=== PATIENT | female | born 1970 | race African-American/Black ===

== ENCOUNTER → 2016-12-03 | Day surgery (SDC) | payer OTHER ==
[~2016-12-03] VITALS: Ht 160 cm; Wt 83.5 kg
[~2016-12-03] MED LIST: FERROUS SULFAT325 M3 PO; LISINOPRIL2.5 M1 PO
--- NOTE | 2016-12-10 11:23 | Operative Report ---
Operative/Inv Procedure Report Surgery Date: 12/03/16 Name of Procedure: D&C hysteroscopy Pre-Operative Diagnosis: Menorrhagia menometrorrhagia Post-Operative Diagnosis: Same Estimated Blood Loss: less than 50ml Surgeon/Web Operations Specialist: RENE GREENBERG MD Anesthesia: moderate sedation Operative/Procedure Note Note: Patient was taken to the operating room placed in dorsal supine position. After adequate anesthesia, patient was prepped and draped for surgery. Examination under anesthesia was performed. CO2 tenaculum was placed on the anterior lip of the cervix gentle downward traction was used. The cervix was dilated 29 Hegar to left insertion of the hysteroscope. Under direct visualization to hysteroscopy was performed using gas hysteroscope was removed and endocervical curettage was performed. And endometrial curettage was performed. All instruments removed from the vagina. The counts were correct the patient was awakened from anesthesia. And transported to recovery room awake and alert. Findings: 10-12 week fibroid uterus no adnexal masses heavy lining of the uterus
== END ==
LOC: STS 01:04
DX: N92.1 Excessive and frequent menstruation with irregular cycle (principal); N71.9 Inflammatory disease of uterus, unspecified; Z21 Asymptomatic human immunodeficiency virus [HIV] infection status
CPT/HCPCS: 88305; J2250